=== PATIENT | male | born 1980 | race Caucasian/White ===

== ENCOUNTER 2022-10-07 23:15 | Emergency (ER) | payer OTHER ==
[~2022-10-07] VITALS: Ht 175.3 cm; Wt 105.0 kg
[2022-10-08 00:19] LABS: Urine Bacteria NONE SEEN /hpf (None Seen); Urine Blood TRACE /uL (Negative); Urine Clarity Clear (Clear); Urine Protein, UAD TRACE (Negative); Urine Specific Gravity 1.004 (1.001-1.035); Urine Urobilinogen Normal (Negative); Urine WBC 4 /hpf (0 - 3); Urine pH 6.5 (5.0-8.0)
[2022-10-08 00:39] LABS: Urine Color Straw (Yellow)
[2022-10-08 00:44] LABS: COVID19 ANTIGEN SOFIA FIA NEGATIVE (NEGATIVE); Rapid Influenza A Negative (Negative); Rapid Influenza B Negative (Negative)
[2022-10-08] MEDS ORDERED: cloNIDine HCL 0.1 MG TAB PO ONE (03:45)
[2022-10-08] MEDS ORDERED: KETOROLAC TROMETH 60MG/2ML VIAL IM ONE (05:00)
[2022-10-08] MEDS ORDERED: AZIT-43 PO (05:27)
[2022-10-08 05:43] VITALS: BP 133/102; PULSE 82; RESP 18; TEMP 99; O2SAT 97
== END 2022-10-08 04:51 | disposition home or self-care (01) ==
LOC: ER 23:15
DX: J02.9 Acute pharyngitis, unspecified (principal); F17.210 Nicotine dependence, cigarettes, uncomplicated; I10 Essential (primary) hypertension; Z20.822 Contact with and (suspected) exposure to COVID-19
CPT/HCPCS: 36415; 71045; 81001; 87426; 87804; 96372; 99284; J1885